=== PATIENT | female | born 1995 | race Caucasian/White ===

== ENCOUNTER 2018-12-24 11:59 | Emergency (ER) | payer MEDICAID ==
[~2018-12-24] VITALS: Ht 162.6 cm; Wt 63.5 kg
--- NOTE | 2018-12-24 12:11 | NUR ---
PRATIMA MARTINEZ AT BEDSIDE.
--- NOTE | 2018-12-24 12:16 | NUR ---
PT A/OX4, PRESENTS TO THE ER C/O MIGRAINE X 3 DAYS. PT REPORTS MIGRAINE HEADACHE IS NON-PROVOKING, THROBBING IN QUALITY, RADIATES THROUGHOUT THE HEAD, 01/16, INTERMITTENT. PT REPORTS LIGHT AND NOISE SENSITIVITY STARTING TODAY. VS WNL. 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 PT DENIES C/P, SOB, N/V/D, DIZZINESS.
[2018-12-24 12:32] LABS: *URINE HCG, QUAL NEGATIVE (NEGATIVE)
[2018-12-24] MEDS ORDERED: KETOROLAC TROMETHAMINE 30 MG INJ ONE (12:45)
[2018-12-24] MEDS ORDERED: KETOROLAC TROMETHAMINE 30 MG INJ IM ONE (12:45)
--- NOTE | 2018-12-24 12:49 | NUR ---
PT GIVEN TORADOL PER IM AT L DELTOID. WILL MONITOR ACCORDINGLY.
--- NOTE | 2018-12-24 13:34 | NUR ---
Patient discharged to home in stable conditon and denies pain. Written and verbal after care instructions given. pt will follow up if symptoms persist Patient verbalizes understanding of instructions. all belongings with pt, pt self ambulated.
[2018-12-24 13:36] VITALS: BP 142/77
== END 2018-12-24 13:37 | disposition home or self-care (01) ==
LOC: ER 11:59
DX: R51 Headache (principal); Z88.8 Allergy status to other drugs, medicaments and biological substances
CPT/HCPCS: 84703; 96372; 99283; J1885; A4663